=== PATIENT | female | born 1955 | race Caucasian/White ===

== ENCOUNTER 2019-11-30 00:58 | Emergency (ER) | payer OTHER ==
[2019-11-30 01:48] VITALS: BMI 32.0
--- NOTE | 2019-11-30 02:06 | PDOC ---
Attending Attestation - Resident Resident Name: Stephanie Chavez - ED Attending Attestation I have performed the following: I have examined & evaluated the patient, The case was reviewed & discussed with the resident, I agree w/resident's findings & plan - HPI HPI: 11/30/19 04:02 see resident hpi - Physicial Exam PE: 11/30/19 04:02 see resident exam - Medical Decision Making 11/30/19 04:03 64-year-old female with Posterior headache, worse than previous CT scan of the brain showed no acute abnormality Patient mildly improved after Reglan IV fluids Benadryl and Tylenol Lumbar puncture performed to rule out subarachnoid hemorrhage Patient now feeling much better, plan on DC pending results 11/30/19 05:52
[2019-11-30] MEDS ORDERED: METOCLOPRAMIDE HCL INJECTION 10 MG/2 ML VIAL IVPUSH ONE (02:18)
[2019-11-30] MEDS ORDERED: ACETAMINOPHEN 1000 MG/100 ML VIAL (NON FORMULARY) IVPB ONE (02:18)
[2019-11-30] MEDS ORDERED: SODIUM CHLORIDE 1,000 ML IV STA (02:18)
[2019-11-30] MEDS ORDERED: ACETAMINOPHEN INJECTION 100 ML IVPB ONE (02:23)
[2019-11-30] MEDS ORDERED: METOCLOPRAMIDE HCL INJECTION 10 MG/2 ML VIAL ONE (02:23)
--- NOTE | 2019-11-30 02:53 | PDOC ---
History of Present Illness - General Chief Complaint: Chest Pain Stated Complaint: DIZZINESS,CHEST PAIN Time Seen by Provider: 11/30/19 01:57 History Source: Patient Exam Limitations: Language Barrier - History of Present Illness Initial Comments: 11/30/19 02:59 64y F with PMH of DM, HLD, Hypothyroidism, WOO presenting to ED with complaints of posterior WOO that started this AM when patient woke up. She denies doing any strenuous activity. Pt states that the headache is constant, feels like a pulling and is worse than her previous headaches but not the worst headache of her life. She says she usually gets posterior headaches and was evaluated in [place] for similar headache but it was not as intense as it is today. She was given Topamax to take which she did today but it did not help. She states that when she takes Topamax, she gets chest pain. She is endorsing pain in the L side of the chest. Denies SOB, syncope, injury, changes in vision, weakness, numbness/tingling, ataxia, chest pain, sob, neck stiffness, fevers/chills. PMD: Shayy PMH: see hpi Meds: metformin, levothyroxine, topiramate Allergies: nkda 11/30/19 06:47 Past History - Past Medical History Allergies/Adverse Reactions: Allergies Allergy/AdvReac Type Severity Reaction Status Date / Time No Known Allergies Allergy Verified 11/30/19 01:48 Home Medications: Ambulatory Orders Acetaminophen [Tylenol Arthritis] 650 mg PO PRN 11/30/19 Ibuprofen 600 mg PO TID PRN #12 tablet 11/30/19 Icosapent Ethyl [Vascepa] 2 mg PO BID 11/30/19 Topiramate 25 mg PO DAILY 11/30/19 metFORMIN HCL [Metformin HCl] 850 mg PO BID 11/30/19 - Psycho Social/Smoking Cessation Hx Smoking History: Never smoked Review of Systems - Review of Systems Constitutional: No: Chills, Fever, Weakness HEENTM: No: Symptoms Reported Respiratory: No: Symptoms reported Cardiac (ROS): Yes: See HPI ABD/GI: No: Symptoms Reported : No: Symptoms Reported Musculoskeletal: No: Symptoms Reported Integumentary: No: Symptoms Reported Neurological: Yes: See HPI *Physical Exam - Vital Signs Last Vital Signs Temp Pulse Resp BP Pulse Ox 97.5 F L 73 16 112/54 L 97 11/30/19 01:41 11/30/19 01:41 11/30/19 01:41 11/30/19 01:41 11/30/19 01:41 - Physical Exam General Appearance: Yes: Nourished, Appropriately Dressed. No: Apparent Distress HEENT: positive: EOMI, LAUREN, Normal ENT Inspection Neck: positive: Trachea midline, Supple. negative: Tender Respiratory/Chest: positive: Lungs Clear, Normal Breath Sounds. negative: Crackles, Rales, Rhonchi, Stridor, Wheezing Cardiovascular: positive: Regular Rhythm, Regular Rate, S1, S2. negative: Edema, JVD, Murmur Vascular Pulses: Dorsalis-Pedis (R): 2+, Doralis-Pedis (L): 2+ Gastrointestinal/Abdominal: positive: Normal Bowel Sounds, Soft. negative: Tender Musculoskeletal: negative: CVA Tenderness Extremity: positive: Normal Capillary Refill, Normal Inspection Integumentary: positive: Normal Color, Dry, Warm Neurologic: positive: patient accounts specialist II-XII NML intact, Fully Oriented, Alert, Normal Mood/Affect, Normal Response, Motor Strength 5/5 Procedures - Lumbar Puncture Indication: Headache CT Scan: Yes (no acute pathology) Betadine Prep: No (chloraprep) Position: Left lateral decubitus Site: L5-S1 Local Anesthesia: 1% Lidocaine with epi Volume(ml): 3 Lumbar Puncture Kit: Adult Opening Pressure(mmHg): 18 Traumatic Tap: Yes Tubes Obtained: 4 Clear Fluid: Yes Complications: No ED Treatment Course - LABORATORY CBC & Chemistry Diagram: 11/30/19 02:40 11/30/19 02:40 - RADIOLOGY Radiology Studies Ordered: Category Date Time Status HEAD CT WITHOUT CONTRAST [CT] Stat CT Scan 11/30/19 02:06 Ordered CHEST PA & LAT [RAD] Stat Radiology 11/30/19 01:59 Ordered - Medications Given in the ED: ED Medications Discontinued Medications Generic Name Dose Route Start Last Admin Trade Name Freq PRN Reason Stop Dose Admin Acetaminophen 1,000 mg 11/30/19 02:18 11/30/19 02:49 Ofirmev Injection - IVPB 11/30/19 02:19 1,000 mg ONCE ONE Administration Diphenhydramine HCl 12.5 mg 11/30/19 02:18 11/30/19 02:48 Benadryl Injection - IVPUSH 11/30/19 02:19 12.5 mg ONCE ONE Administration Metoclopramide HCl 10 mg 11/30/19 02:18 11/30/19 02:49 Reglan Injection - IVPUSH 11/30/19 02:19 10 mg ONCE ONE Administration Medical Decision Making - Medical Decision Making 11/30/19 03:49 64y F presenting with WOO. and pt feeling better. labs wnl. CT: no acute pathology pt rating pain 5/10 from 05/01. pt stating woo is worse than her prior headaches but not worst headache of her life. will perform LP. pt informed about why procedure is performed and risks v. benefits. pt agreed to LP. See procedure note; LP performed under supervision of Dr. Salvador. Tap was traumatic. 11/30/19 05:46 Upon reassessment, headache is resolved. pending CSF results 11/30/19 06:48 csf with no wbc. rbc 92 in first tube, 56 in last tube. 2/2 traumatic tap. colorless. will dc home. pt has neurologist she follows up with. Discharge - Discharge Information Problems reviewed: Yes Clinical Impression/Diagnosis: Headache Qualifiers: Headache type: unspecified Headache chronicity pattern: acute headache Intractability: not intractable Qualified Code(s): R51 - Headache Condition: Improved Disposition: HOME - Admission No - Additional Discharge Information Prescriptions: Ibuprofen 600 mg PO TID PRN #12 tablet PRN Reason: Pain Level 7 - 10 - Follow up/Referral Referrals: Joesph Lucas MD [Primary Care Provider] - - Patient Discharge Instructions Patient Printed Discharge Instructions: DI for Headache Additional Instructions: Te vieron en la enoc de emergencias por dolor de елена. La TC es normal, el anlisis de leonor tambin es normal. Recomiendo latrell ibuprofeno y acetaminofeno para los olayinka de елена segn sea necesario junto con el topiramato. Recomiendo hacer ace inga con kahn neurlogo en las prximas dos semanas. Consulte a kahn mdico de atencin primaria esta semana. Regrese a la enoc de emergencias si phani olayinka de елена empeoran, se desmaya, tiene debilidad, cambios en kahn visin o si se desarrolla algn sntoma nuevo o preocupante. You were seen in the ER for headache. The CT is normal, the blood work is also normal. I recommend taking ibuprofen and acetaminophen for the headaches as needed along with the topiramate. I recoommend making an appointment with your neurologist in the next week or two. Please see your primary care doctor this week. Come back to the ER if your headaches get worse, you pass out, you have weakness, changes in your vision or if any new or concerning symptom develops. Print Language: ERITREAN - Post Discharge Activity
[2019-11-30 03:02] LABS: BASO % 0.9 % (0-2.0); EOS % 1.4 % (0-4.5); HEMATOCRIT 40.8 % (32.4-45.2); HEMOGLOBIN 14.2 GM/dL (10.7-15.3); LYMPH % 39.1 % (8-40); MCH 31.2 pg (25.7-33.7); MCHC 34.9 g/dl (32.0-36.0); MEAN CELL VOLUME 89.4 fl (80-96); MEAN PLT VOLUME 8.5 fl (7.5-11.1); MONO % 7.8 % (3.8-10.2); NEUT % 50.8 % (42.8-82.8); PLATELET COUNT 186 K/MM3 (134-434); RBC 4.57 M/mm3 (3.60-5.2); RDW 12.3 % (11.6-15.6); WHITE BLOOD COUNT 6.4 K/mm3 (4.0-10.0)
[2019-11-30 03:22] LABS: INR 0.97 (0.83-1.09); PROTHROMBIN TIME (PATIENT) 11.4 SEC (9.7-13.0)
[2019-11-30 03:25] LABS: ACTIVATED PTT 39.5 SECONDS (25.2-36.5)
[2019-11-30 03:37] LABS: BILIRUBIN,TOTAL 0.6 mg/dL (0.2-1); BLOOD UREA NITROGEN 10.4 mg/dL (7-18); CALCIUM 8.6 mg/dL (8.5-10.1); CREATININE 0.6 mg/dL (0.55-1.3); POTASSIUM 3.6 mmol/L (3.5-5.1); TOT PROT 7.8 g/dl (6.4-8.2)
[2019-11-30] MEDS ORDERED: LIDOCAINE HCL 1%, 10 MG/ML (50 mL VIAL) SQ ONE (04:21)
[2019-11-30] MEDS ORDERED: LIDOCAINE HCL 1%, 10 MG/ML (20ML VIAL) ONE (04:24)
[2019-11-30 06:06] LABS: CSF APPEARANCE CLEAR; CSF COLOR COLORLESS
[2019-11-30 06:11] LABS: CSF WBC 0
[2019-11-30 06:22] LABS: BF GLUCOSE (CSF ONLY) 59 mg/dL (40-70)
[2019-11-30 07:00] VITALS: BP 96/62; PULSE 63; TEMP 98.2
--- NOTE | 2019-11-30 11:00 | EKG ---
Test Reason : Blood Pressure : / mmHG Vent. Rate : 066 BPM Atrial Rate : 066 BPM P-R Int : 172 ms QRS Dur : 086 ms QT Int : 440 ms P-R-T Axes : 002 -33 026 degrees QTc Int : 461 ms NORMAL SINUS RHYTHM LEFT AXIS DEVIATION INFERIOR INFARCT , AGE UNDETERMINED POSSIBLE ANTERIOR INFARCT , AGE UNDETERMINED ABNORMAL ECG NO PREVIOUS ECGS AVAILABLE Confirmed by Jayjay Kohli MD ([id number]) on 11/30/2019 11:00:17 AM Referred By: Confirmed By:Jayjay Kohli MD
== END 2019-11-30 07:01 | disposition home or self-care (01) ==
LOC: JER 00:58
PROC: 009U3ZX Drainage of Spinal Canal, Percutaneous Approach, Diagnostic (ICD-10-PCS; principal; 2019-11-30)
PROC: 3E023BZ Introduction of Anesthetic Agent into Muscle, Percutaneous Approach (ICD-10-PCS; 2019-11-30)
PROC: 3E033GC Introduction of Other Therapeutic Substance into Peripheral Vein, Percutaneous Approach (ICD-10-PCS; 2019-11-30)
PROC: 3E033NZ Introduction of Analgesics, Hypnotics, Sedatives into Peripheral Vein, Percutaneous Approach (ICD-10-PCS; 2019-11-30)
PROC: 3E033GC Introduction of Other Therapeutic Substance into Peripheral Vein, Percutaneous Approach (ICD-10-PCS; 2019-11-30)
DX: R51 Headache (principal); E11.9 Type 2 diabetes mellitus without complications; Z79.84 Long term (current) use of oral hypoglycemic drugs; E78.5 Hyperlipidemia, unspecified; E03.9 Hypothyroidism, unspecified
CPT/HCPCS: 36415; 62270; 70450-TC; 71046-TC-FY; 80053; 82945; 84157; 84484; 85025; 85610; 85730; 93005; 93010; 96372; 96374; 96375; 99285-25; J0131; J7030